=== PATIENT | male | born 1990 | race African-American/Black ===

== ENCOUNTER 2017-12-22 14:33 | Emergency (ER) | payer SELFPAY ==
[2017-12-22 14:34] VITALS: BP 128/60; PULSE 84; RESP 14; TEMP 98.6; O2SAT 98
[2017-12-22 15:04] LABS: BACTERIA, URINE RARE /hpf; BILIRUBIN, URINE NEG (NEG); BLOOD, URINE NEG (NEG); GLUCOSE,URINE NEG (NEG); KETONE, URINE NEG (NEG); MUCUS URINE MOD /lpf (OCC); NITRITE,URINE NEG (NEG); PH, URINE 6.5 (5.0-8.5); URINE COLOR YELLOW (YELLW/STRAW); URINE LEUKOCYTE ESTERASE LARGE (NEG)
--- NOTE | 2017-12-22 16:27 | PD ---
HPI Chief Complaint: Complaint Time Seen by Provider: 15:56 Travel History International Travel<30 days: No Contact w/Intl Traveler<30days: No Traveled to known affect area: No History of Present Illness HPI 27-year-old male presents for evaluation of dysuria and urethral discharge. Symptoms started this morning. Symptoms are mild, aggravated by urinating. Denies any testicular or scrotal pain, nausea or vomiting, fevers or chills. Sexually active with one partner. No other complaints. PFSH Social History Alcohol Use: Yes Tobacco Use: Yes Allergies-Medications (Allergen,Severity, Reaction): Coded Allergies: No Known Allergies (Unverified , 12/22/17) Reported Meds & Prescriptions Reported Meds & Active Scripts Active No Active Prescriptions or Reported Medications Review of Systems Except as stated in HPI: all other systems reviewed are Neg Physical Exam Narrative GENERAL: Well-nourished male in no acute distress SKIN: Warm and dry. HEAD: Atraumatic. Normocephalic. EYES: Pupils equal and round. No scleral icterus. No injection or drainage. ENT: No nasal bleeding or discharge. Mucous membranes pink and moist. NECK: Trachea midline. No JVD. CARDIOVASCULAR: Regular rate and rhythm. No murmur appreciated. RESPIRATORY: No accessory muscle use. Clear to auscultation. Breath sounds equal bilaterally. GASTROINTESTINAL: Abdomen soft, non-tender, nondistended. Hepatic and splenic margins not palpable. examination reveals normal scrotum, penile shaft with urethral discharge which is white and yellow in color. Data Data Last Documented VS Vital Signs Date Time Temp Pulse Resp B/P (MAP) Pulse Ox O2 Delivery O2 Flow Rate FiO2 12/22/17 14:34 98.6 84 14 128/60 (82) 98 Room Air Orders Orders Urinalysis - C+S If Indicated (12/22/17 14:43) Gc And Chlamydia Pcr (12/22/17 14:43) Urine Culture (12/22/17 14:50) Azithromycin (Zithromax) (12/22/17 16:30) Ceftriaxone Inj (Rocephin Inj) (12/22/17 16:30) Sodium Chloride 0.9% Flush (Ns Flush) (12/22/17 16:30) Lidocaine 1% Inj (50 Ml) (Xylocaine 1% I (12/22/17 16:30) Ed Discharge Order (12/22/17 16:25) Labs Laboratory Tests Test 12/22/17 14:50 Urine Color YELLOW Urine Turbidity HAZY Urine pH 6.5 Urine Specific [place] 1.028 Urine Protein TRACE mg/dL Urine Glucose (UA) NEG mg/dL Urine Ketones NEG mg/dL Urine Occult Blood NEG Urine Nitrite NEG Urine Bilirubin NEG Urine Urobilinogen 8.0 MG/DL Urine Leukocyte Esterase LARGE Urine RBC 3 /hpf Urine WBC 98 /hpf Urine Bacteria RARE /hpf Urine Mucus MOD /lpf Microscopic Urinalysis Comment CULTURE INDICATED MDM Medical Decision Making Medical Screen Exam Complete: Yes Emergency Medical Condition: Yes Medical Record Reviewed: Yes Differential Diagnosis Urethritis, pyelonephritis, cystitis Narrative Course Examination is consistent with urethritis. He is being treated with Rocephin and azithromycin. Diagnosis Primary Impression: Urethritis Additional Instructions: Have all partners tested and treated for STDs at the health department. Follow- up at the health department for routine STD testing. Return for any emergent medical conditions. Med/Other Pt SpecificInfo: No Change to Meds Scripts No Active Prescriptions or Reported Meds Disposition: 01 DISCHARGE HOME Condition: Stable Dru Car Dec 22, 2017 16:27
[2017-12-22] MEDS ORDERED: LIDOCAINE HCL 1% 50 ML VIAL XX ONE (16:30)
[2017-12-22] MEDS ORDERED: SODIUM CHLORIDE 0.9% FLUSH 10 ML FLUSH IVF PRN (16:30)
[2017-12-22] MEDS ORDERED: AZITHROMYCIN 250 MG TAB PO ONE (16:30)
[2017-12-22] MEDS ORDERED: cefTRIAXone 250 MG VIAL IM ONE (16:30)
[2017-12-22] MEDS ORDERED: LIDOCAINE HCL 1% PF 30 ML VIAL INFIL ONE (17:00)
== END 2017-12-22 17:44 | disposition home or self-care (01) ==
LOC: NEPK 14:33
DX: N34.2 Other urethritis (principal); R30.0 Dysuria; Z72.0 Tobacco use
CPT/HCPCS: 81001; 87086; 87491; 87591; 96372; 99284; J0696